=== PATIENT | male | born 1990 | race Caucasian/White ===

== ENCOUNTER → 2019-03-27 | Outpatient (CLI) | payer BC, SELFPAY ==
--- NOTE | 2019-03-28 13:43 | STRESSREP_ITS ---
Stress Test Report Date: 03/27/2019 Procedure: Exercise tolerance test Indications: Chest pain Consent: Per the patient Procedure: The patient exercised on a Vimal protocol for 12 minutes achieving a peak heart rate of 184 bpm (96 % predicted maximal heart rate) with a peak blood pressure 140/80 mmHg and a peak MET capacity of approximately 13.7 mET's. The baseline ECG demonstrated normal sinus rhythm. The peak exercise ECG demonstrated no significant ischemic changes. Patient had occasional PVCs during exercise and in recovery. Sometimes in the form of couplets. The functional capacity was considered normal for age. The patient had no complaint of chest discomfort during exercise or recovery. The examination was discontinued secondary to leg discomfort. Impression: 1. Technically adequate (percent predicted maximal heart rate greater than 85%) exercise tolerance test 2. Stress test is negative for exercise-induced chest pain. 3. Stress test test is negative for exercise-induced EKG changes of ischemia. 4. Functional capacity is normal for age This note was generated with Proxime[employer] software. It may contain incorrect words, spelling, and punctuation that were not noted in checking the note before signing.
== END | disposition home or self-care (01) ==
LOC: CVS 11:08
PROVIDERS: Family Provider Family Medicine; PCP Family Medicine; Referring Provider Family Medicine; Visit Provider Family Medicine
DX: R07.89 Other chest pain (principal)
CPT/HCPCS: 93017

== ENCOUNTER → 2023-09-06 | Outpatient (CLI) | payer BC, SELFPAY ==
--- NOTE | 2023-09-06 15:35 | MRI_ITS ---
STUDY: MRI BRAIN WITH AND WITHOUT CONTRAST (ATTENTION INTERNAL AUDITORY CANALS - I.A.C.''s) REASON FOR EXAM: Male, 32 years old. HEARING LOSS, DIZZINESS TECHNIQUE: Standardized multiplanar fat and water weighted pulse sequences were obtained. ml of 24cc clariscan contrast material was administered intravenously for the contrast portion of the examination. COMPARISON: MRI of the brain dated February 23, 2015. FINDINGS: Internal auditory canal findings: Normal bilateral temporal bones. Normal bilateral internal auditory canals. There is no demonstrated intracanalicular or cisternal vestibular schwannoma (acoustic neuroma). There is no enhancement of the bilateral VIIth or VIIIth cranial nerves. Normal bilateral cochlea, vestibules and semicircular canals. No mastoid air cell opacification is present. No cerebellar pontine angle mass or cyst is seen. There is no demonstrated lesions of the cavernous sinus. No nodularity or abnormal enhancement is seen in the 7th or 8th cranial nerves within IACs. No demonstrated Mondini''s malformation. BRAIN FINDINGS: Normal size of the ventricles and extra-axial spaces for the patient''s age. Normal white matter tracts of the supratentorial brain. There is no evidence for recent intracranial ischemia or other cause of cytotoxic edema on diffusion weighted imaging (DWI). Normal T2* images of the brain without demonstrated susceptibility artifact. There is no demonstrated hemosiderin stain. There are no demyelinating plagues of the supratentorial brain, brainstem or cerebellum. There are no findings suspicious for multiple sclerosis (MS). No hydrocephalus or midline shift is present. There are no visualized ring-enhancing lesions of the brain parenchyma or abnormal thickening or enhancement of the meninges or dura. Normal bilateral basal ganglia. Normal thalami. Normal flow voids within the major intracranial circulation suggesting patency by spin echo criteria. Normal venous enhancement. There is no enhancing intra-axial or extra-axial abnormality. There is no extra-axial fluid accumulation. Normal sella turcica, pituitary gland, infundibular stalk, optic chiasm and hypothalamus. Normal tectal plate and pineal gland. Normal midbrain, alis and medulla. Normal cerebellum. Normal basal cisterns. No demonstrated orbital abnormality, within the constraints of a routine brain study. There is mucoperiosteal inflammatory disease of the paranasal sinuses consistent with mild chronic sinusitis. Normal calvarium and skull base. Normal visualized soft tissue structures. Normal visualized upper cervical spine. MRI/Brain W/WO Contrast IMPRESSION: 1. Normal unenhanced and enhanced MRI of the bilateral internal auditory canals (I.A.C''s). 2. Normal enhanced MRI of the brain. Electronically Signed: Justice Alvarenga MD at 12:24 EDT ,
== END | disposition home or self-care (01) ==
LOC: MRI 15:32
PROVIDERS: PCP Family Medicine; Referring Provider Otolaryngology; Visit Provider Otolaryngology
DX: H90.42 Sensorineural hearing loss, unilateral, left ear, with unrestricted hearing on the contralateral side (principal); R42 Dizziness and giddiness
CPT/HCPCS: 70553; A9575

== ENCOUNTER → 2025-03-17 | Outpatient (CLI) | payer BC, SELFPAY | END | disposition home or self-care (01) | LOC: SL 19:48 | PROVIDERS: PCP Family Medicine; Referring Provider Physician Assistant; Visit Provider Physician Assistant | DX: G47.10 Hypersomnia, unspecified (principal); R06.81 Apnea, not elsewhere classified | CPT/HCPCS: 95810 ==